=== PATIENT | male | born 2000 | race Caucasian/White ===

== ENCOUNTER 2020-07-23 21:47 | Observation (INO) | payer OTHER ==
[~2020-07-23] VITALS: Ht 182.9 cm; Wt 77.0 kg
--- NOTE | 2020-07-23 22:00 | NUR ---
PT ARRIVED VIA SCFR...FROM HOME. C/O WEAKNESS AND ALMOST NUMBNESS...BUT THE WEAKNESS HAS RESOLVED. JUST A LITTLE ALTERED SENSATION ON LEFT SIDE OF BODY.
--- NOTE | 2020-07-23 22:15 | NUR ---
STROKE ALERT CALLED.
--- NOTE | 2020-07-23 22:24 | NUR ---
DR. AVILA ON TELESTROKE. PT THEN TO CT AFTER LABS/IV STARTED.
[2020-07-23 22:36] LABS: GFR > 60 ML/MIN (>=60 (CALC)); GFR FOR AFR.AMER. > 60 ML/MIN (>=60 (CALC))
[2020-07-23 22:37] LABS: HEMATOCRIT 41.2 % (39.0-50.0); HEMOGLOBIN 14.2 g/dl (14.0-18.0); IMMATURE GRANULOCYTES 0.4 % (0.0-5.0); MEAN CELL VOLUME 93.6 fL CALC (80.0-100.0); MEAN CORPUSCULAR HGB 32.3 pG CALC (26.0-32.0); MEAN CORPUSCULAR HGB CONC 34.5 g/dL CAL (32.0-36.0); NEUT# 6.77 thou/uL (1.82-7.42); RED BLOOD COUNT 4.4 mill/uL (4.70-6.10); RED CELL DISTRI WIDTH 11.9 % (11.5-15.5)
--- NOTE | 2020-07-23 22:55 | NUR ---
RETURNED FROM CT VIA STRETCHER. NAD. AT BEDSIDE.
[2020-07-23 22:57] LABS: ALBUMIN 4.3 g/dL (3.2-5.0); ALKALINE PHOSPHATASE 74 u/l (38-126); ANION GAP 10 (6-22 (CALC)); BILIRUBIN, TOTAL 0.5 mg/dL (0.0-1.4); BUN 21 mg/dL (8-21); BUN/CREATININE RATIO 21 (12-20 (CALC)); C-REACTIVE PROTEIN < 0.5 mg/dL (0-0.9); CARBON DIOXIDE 29 mmol/l (22-30); CHLORIDE 106 mmol/l (95-108); GFR > 60 ML/MIN (>=60 (CALC)); GFR FOR AFR.AMER. > 60 ML/MIN (>=60 (CALC)); POTASSIUM 3.8 mmol/l (3.5-5.1); SGOT/AST 34 u/l (17-59); SODIUM 141 mmol/l (137-146); TOTAL PROTEIN 7.1 g/dL (6.3-8.2)
[2020-07-23 23:03] LABS: MYOGLOBIN 108 ng/mL (0 - 121)
--- NOTE | 2020-07-23 23:10 | NUR ---
PT AMBULATORY TO BR. NAD. GAIT STEADY. VSS.
[2020-07-23 23:25] LABS: TSH, 3RD GENERATION 2.17 uIU/mL (0.47 - 4.68)
[2020-07-23 23:26] LABS: URINE BILIRUBIN - DIPSTICK NEGATIVE (NEGATIVE); URINE BLOOD DIPSTICK NEGATIVE (NEGATIVE); URINE COLOR YELLOW; URINE GLUCOSE - DIPSTICK NEGATIVE (NEGATIVE); URINE KETONE NEGATIVE (NEGATIVE); URINE LEUK ESTERASE NEGATIVE (NEGATIVE); URINE NITRITE - DIPSTICK NEGATIVE (Negative); URINE PH 7.5 (4.5-8.0); URINE PROTEIN - DIPSTICK NEGATIVE (NEG-TRACE)
--- NOTE | 2020-07-24 00:30 | NUR ---
PT RESTING. AWARE OF ADMISSION.
--- NOTE | 2020-07-24 01:11 | NUR ---
PT. MOVED TO ROOM 10 AND PLACED IN A REGULAR BED.
--- NOTE | 2020-07-24 02:15 | NUR ---
PT. RESTING QUIETLY EYES CLOSED, NO C/O AT THIS TIME V/S STABLE.
--- NOTE | 2020-07-24 06:21 | NUR ---
PT. SLEEPING AWAKENS EASILY. PT. STILL C/O DECREASED SENSATION ON LUE.
[2020-07-24 06:28] LABS: HEMATOCRIT 40.4 % (39.0-50.0); IMMATURE GRANULOCYTES 0.6 % (0.0-5.0); MEAN CELL VOLUME 94.2 fL CALC (80.0-100.0); MEAN CORPUSCULAR HGB 32.6 pG CALC (26.0-32.0); MEAN CORPUSCULAR HGB CONC 34.7 g/dL CAL (32.0-36.0); NEUT# 5.12 thou/uL (1.82-7.42); RED BLOOD COUNT 4.29 mill/uL (4.70-6.10); RED CELL DISTRI WIDTH 12.1 % (11.5-15.5)
--- NOTE | 2020-07-24 06:43 | NUR ---
REPORT GIVEN TO GINGER CRISTOBAL.
[2020-07-24 06:46] LABS: ANION GAP 11 (6-22 (CALC)); BUN 20 mg/dL (8-21); BUN/CREATININE RATIO 24 (12-20 (CALC)); CALCULATED LDLCHOLESTEROL 75 mg/dL (62-129 (CALC)); CARBON DIOXIDE 26 mmol/l (22-30); CHLORIDE 106 mmol/l (95-108); CHOLESTEROL HDL RATIO 3.8 (<4.4 (CALC)); CREATININE 0.8 mg/dL (0.7-1.3); GFR > 60 ML/MIN (>=60 (CALC)); GFR FOR AFR.AMER. > 60 ML/MIN (>=60 (CALC)); HDL CHOLESTEROL 33 mg/dL (>=40); POTASSIUM 4.2 mmol/l (3.5-5.1); SODIUM 139 mmol/l (137-146); TOTAL CHOLESTEROL 124 mg/dl (0-199); TOTAL TRIGLYCERIDES 80 mg/dl (30-149); VLDL CHOLESTROL 16 mg/dl (0-26 (CALC))
--- NOTE | 2020-07-24 07:23 | NUR ---
PT HAS NO COMPLAINTS
--- NOTE | 2020-07-24 08:48 | NUR ---
REPORT CALLED AND GIVEN TO ZHANG CRISTOBAL AWAITING COVID SWAB RESULTS TO TRANSFER PT-
--- NOTE | 2020-07-24 09:17 | NUR ---
PT WENT TO RESTROOM WITHOUT DISTRESS-
--- NOTE | 2020-07-24 09:28 | NUR ---
Attempted to see patient for cognitive-linguistic assessment. Per discussion with staff, patient going to MRI and then will be transferred from the ED to the floor. SHIFT COMMANDER will re-attempt follow-up later today.
--- NOTE | 2020-07-24 09:29 | NUR ---
PT WENT TO MRI AND NOTIFIED ZHANG THAT HE WILL BE RETURNING TO THE ROOM AFTERWARDS HIS COVID SWAB IS NEGATIVE
--- NOTE | 2020-07-24 09:41 | NUR ---
PT IS HAVING AN MRI. WILL REVISIT LATER TODAY TO COMPLETE PT EVALUATION.
--- NOTE | 2020-07-24 10:20 | NUR ---
PT [facility] RO[facility] VIA WHEELCHAIR IN STABLE CONDITION ACCOMPAINED BY MRI STAFF. INTRODUCED SELF TO PT AND DISCUSSED POC. PT IS A/O X3. ASSESSMENT AND VITALS COMPLETED. RESPIRATIONS ARE EVEN AND UNLABORED ON ROOM AIR. LUNG SOUNDS ARE CLEAR. HEART RHYTHM IS NORMAL. BOWEL SOUND SARE ACTIVE IN ALL QUADRANTS, LAST REPORTED BM 07/24/2020. RADIAL AND PEDAL PULSES ARE STRONG. #20G IN RAC FLUSHED, SITE APPEARS HEALTHY AND PATENT. LOCKSMITH HELPER ARE STRONG. PT DENIES OF ANY PAIN OR DISCOMFORTS AT THIS TIME. ALL SAFETY PRECAUTIONS ARE IN PLACE. WILL CONTINUE TO MONITOR.
[2020-07-24 10:25] VITALS: BP 108/66
--- NOTE | 2020-07-24 10:46 | NUR ---
PT AT BEDSIDE
--- NOTE | 2020-07-24 12:01 | NUR ---
PT REQUEST FOR UPDATE. MEDICAL ASSOCIATE EDUACTED PT ON MRI RESULTS AND THAT MD AND ANRP WOULD BE COMING IN SHORTLY TO EXPLAIN FURTHER. PT VERBALIZED UNDERSTANDING. RESPIRAITONS REMAINS EVEN AND UNLABORE ON ROOM AIR. PT DENIES OF ANY PAINS OR DISCOMFORTS. ALL SFAETY PRECAUTIONS ARE IN PLACE WITH CALL LIGHT IN REACH. WILL CONTINUE TO MONITOR
--- NOTE | 2020-07-24 12:52 | NUR ---
AT BEDSIDE DISCUSSING POC WITH PT
--- NOTE | 2020-07-24 14:31 | NUR ---
MICHELLE, ANRP AT BEDSIDE
--- NOTE | 2020-07-24 15:06 | NUR ---
Terence OWEN,ANRP AT BEDSIDE
[2020-07-24 15:15] VITALS: BP 112/56
--- NOTE | 2020-07-24 15:59 | NUR ---
MICHELLE,ANRP AT BEDSIDE COMUNICATING WITH PT AND NEUROLOGY PER [facility]
--- NOTE | 2020-07-24 16:50 | NUR ---
NETWORKS COMPUTER CONSULTANT CALLED TO ROOM. PT STATES " I FEEL FINE AND I WANT THE PAPERS TO GO HOME." NETWORKS COMPUTER CONSULTANT EDUCATED PT ON MEDICAL STATUS. PT VERBALIZED UNDERSTANDING. BRUNILDA MARTINEZ NOTFIED OF PT REQUEST.
--- NOTE | 2020-07-24 17:00 | NUR ---
MICHELLE,ANRP AT BEDSIDE. PT TO SIGN SELF OUT
[2020-07-24] MEDS ORDERED: ASPIRIN 81 LOW81 MG PO (17:01)
--- NOTE | 2020-07-24 17:53 | NUR ---
AMA FORMED SIGNED. PRESCIRPTION GIVEN FOR ASPIRIN ECHO AND EEG.EDUACTED PT ON NEED TO FOLLOW UP WITH DR SHERIDAN.DR SHERIDAN CARD GIVEN TO PT. PT VERBALIZED UNDERSTANDING. IV REMOVED WITH CATHATER STILL INTACT.
--- NOTE | 2020-07-24 17:54 | NUR ---
PT AMBULATED WITH STEADY GAIT. REFUSED WHEELCHAIR.
== END 2020-07-24 17:31 | disposition left against medical advice (07) ==
LOC: ED 21:47 → ED-I 07-24 00:50 → ED 07-24 00:55 → ED-I 07-24 00:56 → MS2 07-24 07:05 → ED-I 07-24 07:05 → MS2 07-24 17:31
PROVIDERS: Family Medicine; Nurse Practitioner; ADMIT Internal Medicine; ATTEND Internal Medicine
DX: G45.9 Transient cerebral ischemic attack, unspecified (principal); J45.909 Unspecified asthma, uncomplicated; F17.210 Nicotine dependence, cigarettes, uncomplicated; Z82.3 Family history of stroke; Z20.828 Contact with and (suspected) exposure to other viral communicable diseases
CPT/HCPCS: J1650; Q9967

== ENCOUNTER 2021-02-25 19:17 | Emergency (ER) | payer OTHER ==
[~2021-02-25] VITALS: Ht 182.9 cm; Wt 90.0 kg
[2021-02-25 19:17] VITALS: BP 115/58
[~2021-02-25 19:17] MED LIST: ASPIRIN 81 LOW81 MG PO
== END 2021-02-25 20:20 | disposition left against medical advice (07) | DRG 605 ==
LOC: ED 19:17
DX: S80.212A Abrasion, left knee, initial encounter (principal); M25.572 Pain in left ankle and joints of left foot; J45.909 Unspecified asthma, uncomplicated; F17.210 Nicotine dependence, cigarettes, uncomplicated; V28.4XXA Motorcycle driver injured in noncollision transport accident in traffic accident, initial encounter; Z91.19 Patient's noncompliance with other medical treatment and regimen

== ENCOUNTER 2021-05-10 18:26 | Emergency (ER) | payer OTHER ==
[~2021-05-10] VITALS: Ht 182.9 cm; Wt 90.0 kg
[2021-05-10 19:41] LABS: HEMATOCRIT 47.1 % (39.0-50.0); HEMOGLOBIN 16.6 g/dl (14.0-18.0); IMMATURE GRANULOCYTES 0.6 % (0.0-5.0); MEAN CELL VOLUME 93.8 fL CALC (80.0-100.0); MEAN CORPUSCULAR HGB 33.1 pG CALC (26.0-32.0); MEAN CORPUSCULAR HGB CONC 35.2 g/dL CAL (32.0-36.0); NEUT# 16.74 thou/uL (1.82-7.42); RED BLOOD COUNT 5.02 mill/uL (4.70-6.10); RED CELL DISTRI WIDTH 11.8 % (11.5-15.5)
[2021-05-10 19:58] LABS: ALBUMIN 5.2 g/dL (3.2-5.0); ALKALINE PHOSPHATASE 103 u/l (38-126); ANION GAP 14 (6-22 (CALC)); BUN 18 mg/dL (9-20); BUN/CREATININE RATIO 17 (12-20 (CALC)); CARBON DIOXIDE 28 mmol/l (22-30); CHLORIDE 104 mmol/l (95-108); CPK 895 u/l (52-200); GFR > 60 ML/MIN (>=60 (CALC)); GFR FOR AFR.AMER. > 60 ML/MIN (>=60 (CALC)); LIPASE 52 u/l (23-300); POTASSIUM 4.5 mmol/l (3.5-5.1); SGOT/AST 72 u/l (17-59); SODIUM 142 mmol/l (137-146)
[2021-05-10] MEDS ORDERED: NAPROXEN500 MG PO (21:31)
[2021-05-10] MEDS ORDERED: BACTRIM DS1 TAB PO (21:31)
[2021-05-10] MEDS ORDERED: LORTAB 1010 MG PO (21:45)
[2021-05-10 21:47] VITALS: BP 136/70
== END 2021-05-10 21:47 | disposition home or self-care (01) ==
LOC: ED 18:26
PROVIDERS: Family Medicine
DX: S81.821A Laceration with foreign body, right lower leg, initial encounter (principal); D72.829 Elevated white blood cell count, unspecified; J45.909 Unspecified asthma, uncomplicated; F17.210 Nicotine dependence, cigarettes, uncomplicated; V86.65XA Passenger of 3- or 4- wheeled all-terrain vehicle (ATV) injured in nontraffic accident, initial encounter; Y93.I9 Activity, other involving external motion
CPT/HCPCS: J1956

== ENCOUNTER 2021-05-13 10:33 | Emergency (ER) | payer OTHER ==
[~2021-05-13] VITALS: Ht 182.9 cm; Wt 85.0 kg
[~2021-05-13 10:33] MED LIST changes: +BACTRIM DS1 TAB PO; +LORTAB 1010 MG PO; +NAPROXEN500 MG PO
[2021-05-13 11:46] LABS: IMMATURE GRANULOCYTES 1.1 % (0.0-5.0); MEAN CELL VOLUME 94.3 fL CALC (80.0-100.0); MEAN CORPUSCULAR HGB 32.9 pG CALC (26.0-32.0); MEAN CORPUSCULAR HGB CONC 34.8 g/dL CAL (32.0-36.0); NEUT# 5.97 thou/uL (1.82-7.42); RED BLOOD COUNT 4.23 mill/uL (4.70-6.10); RED CELL DISTRI WIDTH 11.8 % (11.5-15.5)
[2021-05-13 11:47] LABS: HEMATOCRIT 39.9 % (39.0-50.0); HEMOGLOBIN 13.9 g/dl (14.0-18.0)
[2021-05-13 11:54] LABS: ALBUMIN 4.2 g/dL (3.2-5.0); ALKALINE PHOSPHATASE 69 u/l (38-126); ANION GAP 15 (6-22 (CALC)); BUN 18 mg/dL (9-20); BUN/CREATININE RATIO 19 (12-20 (CALC)); CARBON DIOXIDE 24 mmol/l (22-30); CHLORIDE 103 mmol/l (95-108); GFR > 60 ML/MIN (>=60 (CALC)); GFR FOR AFR.AMER. > 60 ML/MIN (>=60 (CALC)); POTASSIUM 4.4 mmol/l (3.5-5.1); SGOT/AST 35 u/l (17-59); SODIUM 138 mmol/l (137-146); TOTAL PROTEIN 7.3 g/dL (6.3-8.2)
[2021-05-13] MEDS ORDERED: ONDANSETRON4 MG PO (13:39)
[2021-05-13] MEDS ORDERED: DOXYCYC MONO100 M2 PO (13:45)
[2021-05-13 13:59] VITALS: BP 90/77
== END 2021-05-13 14:10 | disposition home or self-care (01) ==
LOC: ED 10:33
PROVIDERS: Emergency Medicine
DX: S81.811D Laceration without foreign body, right lower leg, subsequent encounter (principal); J45.909 Unspecified asthma, uncomplicated; F17.200 Nicotine dependence, unspecified, uncomplicated; X58.XXXD Exposure to other specified factors, subsequent encounter
CPT/HCPCS: Q9967